=== PATIENT | female | born 1945 | race African-American/Black ===

== ENCOUNTER → 2017-04-11 | Outpatient (CLI) | payer MEDICARE, OTHER ==
--- NOTE | 2017-04-11 14:53 | RAD ---
DATE: 04/11/2017 EXAM: DIGITAL SCREEN BILAT W/CAD HISTORY: Routine screening COMPARISON: 04/10/2016 This study was interpreted with the benefit of Computerized Aided Detection (CAD). FINDINGS: Breast Density: SCATTERED The breast parenchyma shows scattered fibroglandular densities. Breast parenchyma level B. There are no dominant suspicious masses, suspicious microcalcifications or evidence of architectural distortion. Density identified in the left breast best seen on the cc view likely postbiopsy changes similar to prior exam . Benign-appearing calcifications identified in the right breast similar to prior exam. IMPRESSION: Benign findings BI-RADS CATEGORY: 2 BENIGN FINDING RECOMMENDED FOLLOW-UP: 12M 12 MONTH FOLLOW-UP PQRS compliance statement: Patient information was entered into a reminder system with a target due date 04/11/2018 for the next mammogram. Mammography is a sensitive method for finding small breast cancers, but it does not detect them all and is not a substitute for careful clinical examination. A negative mammogram does not negate a clinically suspicious finding and should not result in delay in biopsying a clinically suspicious abnormality. "Our facility is accredited by the [employer] Mammography [employer]."
== END | disposition home or self-care (01) ==
LOC: MAMMO 09:21
PROVIDERS: ATTEND Family Medicine
DX: Z12.31 Encounter for screening mammogram for malignant neoplasm of breast (principal)
CPT/HCPCS: G0202; 77067

== ENCOUNTER → 2018-04-14 | Outpatient (CLI) | payer MEDICARE, OTHER ==
--- NOTE | 2018-04-14 11:45 | RAD ---
DATE: 04/14/2018 EXAM: MAMMO ELEONORA SCREENING BILATERAL HISTORY: Routine screening COMPARISON: Previous mammogram from 2017 and 2016 This study was interpreted with the benefit of Computerized Aided Detection (CAD). FINDINGS: Breast Density: SCATTERED The breast parenchyma shows scattered fibroglandular densities. Breast parenchyma level B. Stable asymmetry is seen in the left anterior breast only seen on cc view most likely post procedural scar. Benign-appearing calcifications are seen in the right breast. No suspicious calcifications, spiculated masses or areas of architectural distortion. IMPRESSION: No mammographic evidence of malignancy. Stable mammogram. BI-RADS CATEGORY: 2 BENIGN FINDING(S) RECOMMENDED FOLLOW-UP: 12M 12 MONTH FOLLOW-UP PQRS compliance statement: Patient information was entered into a reminder system with a target due date for the next mammogram. Mammography is a sensitive method for finding small breast cancers, but it does not detect them all and is not a substitute for careful clinical examination. A negative mammogram does not negate a clinically suspicious finding and should not result in delay in biopsying a clinically suspicious abnormality. "Our facility is accredited by the [employer]amm[employer]."
== END | disposition home or self-care (01) ==
LOC: MAMMO 08:30
PROVIDERS: ATTEND Specialist
DX: Z12.31 Encounter for screening mammogram for malignant neoplasm of breast (principal)
CPT/HCPCS: 77063; 77067

== ENCOUNTER → 2019-04-15 | Outpatient (CLI) | payer MEDICARE, OTHER ==
--- NOTE | 2019-04-16 12:07 | RAD ---
DATE: 04/15/2019 1:47 PM EXAM: MAMMO ELEONORA SCREENING BILATERAL HISTORY screening mammogram. History of bilateral breast biopsies. COMPARISON: April 14, 2018. April 11, 2017. Bilateral CC and MLO views of the breasts were performed. Bilateral breast tomosynthesis was performed in CC and MLO projections. This study was interpreted with the benefit of Computerized Aided Detection (CAD). FINDINGS: Breast Density: SCATTERED The breast parenchyma shows scattered fibroglandular densities. Breast parenchyma level B Several right scattered breast masses, unchanged. Left breast scar related to prior procedure, unchanged compared to prior. Right breast scarring, likely related to prior procedure, unchanged. No suspicious masses, microcalcifications or architectural distortion is present to suggest malignancy in either breast. The visualized axillae are unremarkable. IMPRESSION: Stable bilateral mammograms. BI-RADS CATEGORY: 2 BENIGN FINDING(S) RECOMMENDED FOLLOW-UP: 12M 12 MONTH FOLLOW-UP Annual screening mammography is recommended, unless clinically indicated sooner based on symptoms or change in physical exam. PQRS compliance statement: Patient information was entered into a reminder system with a target due date one year for the next mammogram. Mammography is a sensitive method for finding small breast cancers, but it does not detect them all and is not a substitute for careful clinical examination. A negative mammogram does not negate a clinically suspicious finding and should not result in delay in biopsying a clinically suspicious abnormality. "Our facility is accredited by the [employer] Mammography [employer]."
== END | disposition home or self-care (01) ==
LOC: MAMMO 13:31
PROVIDERS: ATTEND Specialist
DX: Z12.31 Encounter for screening mammogram for malignant neoplasm of breast (principal); N63.10 Unspecified lump in the right breast, unspecified quadrant
CPT/HCPCS: 77063; 77067

== ENCOUNTER 2020-04-25 12:24 | Emergency (ER) | payer MEDICARE, OTHER ==
[~2020-04-25] VITALS: Ht 170.2 cm; Wt 104.0 kg
--- NOTE | 2020-04-25 13:50 | RAD ---
Examination: KNEE RIGHT 3V History: Reason: fall pain / Spl. Instructions: / History: Comparison/Correlation: None Findings: Total of 3 images of the right knee were obtained. Displaced comminuted fractures of the tibial plateau and tibial and proximal tibial metaphysis noted with intra-articular involvement. Possibility of fibular head fractures is questioned. Evaluation is limited due to patient positioning. Patellofemoral compartment narrowing and remodeling is present. No displaced distal femoral fractures are delineated. Impression: Comminuted tibial plateau and proximal tibial metaphyseal fractures with significant displacement. Possible fibular head fracture involvement. Electronically signed by: Edd Watters MD (04/25/2020 1:46 PM) [id number]
--- NOTE | 2020-04-25 14:35 | RAD ---
EXAMINATION: CT LOWER EXTREMITY WO RIGHT, 04/25/2020 1:42 PM CLINICAL INDICATION: Knee fracture COMPARISON: Right knee radiograph 04/25/2020 TECHNIQUE: Helical CT imaging performed of the right knee without the use of intravenous contrast. Sagittal and coronal reformats were obtained. One or more of the following individualized dose reduction techniques were utilized for this examination: 1. Automated exposure control 2. Adjustment of the mA and/or kV according to patient size 3. Use of iterative reconstruction technique. FINDINGS: There is a highly comminuted, displaced tibial plateau fracture involving the medial and lateral tibial plateau with the distal femur impacted on the anterior tibia. This results in at least 1.6 cm depression of the articular surface anteriorly. There is a transverse metaphyseal component of the fracture. There is significant posterior subluxation of the distal femur relative to the femur by at least 3 cm. Displaced tibial plateau fracture fragments are in close proximity to popliteal artery and vein. No large hematoma. There is a comminuted, mildly displaced fracture of fibular head. There is mild subcutaneous edema. Radiopaque densities in the lower anterior resection could be calcifications or foreign bodies. There is no large hematoma in the posterior knee. IMPRESSION: 1. Highly comminuted, displaced tibial plateau fracture as described, with posterior subluxation/dislocation of the knee. Displaced fracture fragments are in close proximity to the popliteal artery and vein. Recommend CT angiogram of the lower extremity to exclude vascular injury. 2. Comminuted, mildly displaced fibular head fracture. Electronically signed by: Kimberly Taylor MD (04/25/2020 2:32 PM) [id number]
[2020-04-25 15:01] LABS: BASO # 0.1 x10^3/uL (0.0-0.2); BASO % 1 % (0-3); EOS % 0 % (0-3); HEMATOCRIT 37.6 % (36.0-47.0); HEMOGLOBIN 12.1 g/dL (12.0-15.5); LYMPH # 1.5 x10^3/uL (1.0-4.8); LYMPH % 10 % (24-48); MEAN CORPUSCULAR HEMOGLOBIN 27 pg (25-35); MEAN CORPUSCULAR HGB CONC 32 g/dL (31-37); MEAN CORPUSCULAR VOLUME 83 fL (79-100); MONO # 0.8 x10^3/uL (0.0-1.1); MONO % 6 % (0-9); NEUT # 12.8 x10^3/uL (1.8-7.7); NEUT % 84 % (31-73); PLATELET COUNT 271 x10^3/uL (140-400); RED BLOOD COUNT 4.53 x10^6/uL (3.50-5.40); RED CELL DISTRIBUTION WIDTH 14.6 % (11.5-14.5); WHITE BLOOD COUNT 15.3 x10^3/uL (4.0-11.0)
[2020-04-25 15:28] LABS: CALCIUM 8.9 mg/dL (8.5-10.1); CREATININE 1.1 mg/dL (0.6-1.0); GFR 58.4; POTASSIUM 4.1 mmol/L (3.5-5.1)
[2020-04-25 15:33] VITALS: BP 150/74
[2020-04-25 15:33] LABS: ALBUMIN 3.3 g/dL (3.4-5.0); ALBUMIN/GLOBULIN RATIO 0.8 (1.0-1.7); TOTAL BILIRUBIN 0.3 mg/dL (0.2-1.0); TOTAL PROTEIN 7.3 g/dL (6.4-8.2)
[2020-04-25] MEDS ORDERED: CONTRAST GIVEN. MC PRN (15:45)
[2020-04-25] MEDS ORDERED: IOHEXOL 350 MG/ML 100 ML VIAL. IV ONE (15:45)
[2020-04-25 16:35] LABS: % BANDS 1 % (0-9); % LYMPHS 11 % (24-48); % MONOS 3 % (0-10); % SEGS 85 % (35-66); PLT ESTIMATE ADEQUATE (ADEQUATE)
--- NOTE | 2020-04-25 16:55 | RAD ---
EXAMINATION: CT ANGIO LOWER EXTREMITY RIGHT, 04/25/2020 2:37 PM CLINICAL INDICATION: Evaluate for arterial injury of the right knee. Posterior dislocation. COMPARISON: CT right lower extremity 04/25/2020 TECHNIQUE: Helical CT angiogram of the right knee after the administration of 80 mL Omnipaque 350 intravenous contrast. Sagittal and coronal MIP reformats were obtained. One or more of the following individualized dose reduction techniques were utilized for this examination: 1. Automated exposure control 2. Adjustment of the mA and/or kV according to patient size 3. Use of iterative reconstruction technique. FINDINGS: There is no arterial occlusion, transection or extravasation. There is focal irregularity and mild narrowing of the proximal popliteal artery at the level of the distal femoral metaphysis, approximately 10 cm cranial to the bifurcation (image [id number] axial series), which could represent a vasospasm versus small intimal injury/dissection. The rest of the popliteal artery, tibioperoneal trunk, and three-vessel runoff are normal in appearance. There are a few small scattered calcifications in the common and superficial femoral artery without significant narrowing. Comminuted tibial plateau fracture with posterior knee subluxation/dislocation is unchanged. Proximal fibular fracture is unchanged. There is subcutaneous edema and a small amount of fluid about the knee. Calcifications versus foreign bodies in the subcutaneous soft tissues along the anterior proximal parry. IMPRESSION: 1. Focal irregularity of the proximal popliteal artery at the level of the distal femoral metaphysis could represent a vasospasm versus small, likely nonflow-limiting dissection. No occlusion, transection, or contrast extravasation. 2. Unchanged fracture-dislocation of the knee, fully described on prior CT. Electronically signed by: Kimberly Taylor MD (04/25/2020 4:52 PM) [id number]
[2020-04-25] MEDS ORDERED: MORPHINE SULFATE 10 MG/ML VIAL. IV ONE (18:15)
[2020-04-25] MEDS ORDERED: HYDROmorphone 2 MG/ML VIAL IVP ONE (19:00)
--- NOTE | 2020-04-25 19:00 | PHYS DOC ---
Past Medical History Past Medical History: Diabetes-Type II, High Cholesterol, Hypertension (STEPHON RICKS APRN) Past Surgical History: No Surgical History (STEPHON RICKS APRN) Smoking Status: Never Smoker Alcohol Use: None (STEPHON RICKS APRN) General Adult EDM: Chief Complaint: MECHANICAL FALL HPI: HPI: Patient is a 75 year old female with a history of diabetes type 2, hypertension , high cholesterol, who presents to the ED today complaining of 10 out of 10 right knee pain that began a couple minutes prior to coming to the ED after falling. Patient states she tripped over her own shoes and fell landing on her right knee. Denies any loss of consciousness. Denies hitting her head on the ground. Denies any neck pain. States the pain is throbbing and intermittent. She states she was given fentanyl by EMS and this relieved some of the pain. She states she feels like the lower extremity is not connected to the knee on the right side. (STEPHON RICKS APRN) Review of Systems: Review of Systems: Constitutional: Denies fever or chills. [] Eyes: Denies change in visual acuity. [] HENT: Denies nasal congestion or sore throat. [] Respiratory: Denies cough or shortness of breath. [] Cardiovascular: Denies chest pain or edema. [] GI: Denies abdominal pain, nausea, vomiting, bloody stools or diarrhea. [] : Denies dysuria. [] Musculoskeletal: Reports right knee pain, denies any neck pain, mid or low back pain Integument: Denies rash. [] Neurologic: Denies headache, focal weakness or sensory changes. [] Psychiatric: Denies depression or anxiety. [] (STEPHON RICKS APRN) Heart Score: Risk Factors: Risk Factors: DM, Current or recent (<one month) smoker, HTN, HLP, family history of CAD, obesity. Risk Scores: Score 0 - 3: 2.5% MACE over next 6 weeks - Discharge Home Score 4 - 6: 20.3% MACE over next 6 weeks - Admit for Clinical Observation Score 7 - 10: 72.7% MACE over next 6 weeks - Early Invasive Strategies (STEPHON RICKS APRN) Current Medications: Current Medications Medications (Trade) Dose Ordered Sig/Marck Start Time Stop Time Status Last Admin Dose Admin Info (CONTRAST GIVEN -- Rx MONITORING) 1 each PRN DAILY PRN 04/25/20 15:45 04/27/20 15:44 Iohexol (Omnipaque 350 Mg/ml) 80 ml 1X ONCE 04/25/20 15:45 04/25/20 15:46 DC 04/25/20 16:08 80 ML Morphine Sulfate (Morphine Sulfate) 5 mg 1X ONCE 04/25/20 18:15 04/25/20 18:16 DC 04/25/20 18:17 5 MG (STEPHON RICKS APRN) Allergies: Allergies: Allergies Coded Allergies Type Severity Reaction Last Updated Verified No Known Drug Allergies 04/25/20 No (STEPHON RICKS REAM CUTTER) Physical Exam: PE: Constitutional: Well developed, well nourished, no acute distress, non-toxic appearance. [] HENT: Normocephalic, atraumatic, bilateral external ears normal, oropharynx moist, no oral exudates, nose normal. [] Eyes: PERRLA, EOMI, conjunctiva normal, no discharge. [] Neck: Normal range of motion, no tenderness, supple, no stridor. [] Cardiovascular:Heart rate regular rhythm, no murmur [] Lungs & Thorax: Bilateral breath sounds clear to auscultation [] Abdomen: Bowel sounds normal, soft, no tenderness, no masses, no pulsatile masses. [] Skin: Warm, dry, no erythema, no rash. [] Back: No tenderness, no CVA tenderness. [] Extremities: Right knee with mild soft tissue swelling diffusely. The knee is deformed. Patient unable to take the knee through any range of motion. Full range of motion to the right toes. +2 right pedal pulse. Cap refill less than 2 seconds the right toes. Sensation intact to the right lower extremity. Neurologic: Alert and oriented X 3, normal motor function, normal sensory function, no focal deficits noted. [] Psychologic: Affect normal, judgement normal, mood normal. [] (STEPHON RICKS REAM CUTTER) Current Patient Data: Labs: Laboratory Tests Test 04/25/20 14:53 White Blood Count 15.3 x10^3/uL (4.0-11.0) H Red Blood Count 4.53 x10^6/uL (3.50-5.40) Hemoglobin 12.1 g/dL (12.0-15.5) Hematocrit 37.6 % (36.0-47.0) Mean Corpuscular Volume 83 fL (79-100) Mean Corpuscular Hemoglobin 27 pg (25-35) Mean Corpuscular Hemoglobin Concent 32 g/dL (31-37) Red Cell Distribution Width 14.6 % (11.5-14.5) H Platelet Count 271 x10^3/uL (140-400) Neutrophils (%) (Auto) 84 % (31-73) H Lymphocytes (%) (Auto) 10 % (24-48) L Monocytes (%) (Auto) 6 % (0-9) Eosinophils (%) (Auto) 0 % (0-3) Basophils (%) (Auto) 1 % (0-3) Neutrophils # (Auto) 12.8 x10^3/uL (1.8-7.7) H Lymphocytes # (Auto) 1.5 x10^3/uL (1.0-4.8) Monocytes # (Auto) 0.8 x10^3/uL (0.0-1.1) Eosinophils # (Auto) 0.0 x10^3/uL (0.0-0.7) Basophils # (Auto) 0.1 x10^3/uL (0.0-0.2) Segmented Neutrophils % 85 % (35-66) H Band Neutrophils % 1 % (0-9) Lymphocytes % 11 % (24-48) L Monocytes % 3 % (0-10) Platelet Estimate Adequate (ADEQUATE) Sodium Level 140 mmol/L (136-145) Potassium Level 4.1 mmol/L (3.5-5.1) Chloride Level 103 mmol/L (98-107) Carbon Dioxide Level 25 mmol/L (21-32) Anion Gap 12 (6-14) Blood Urea Nitrogen 24 mg/dL (7-20) H Creatinine 1.1 mg/dL (0.6-1.0) H Estimated GFR (Cockcroft-Gault) 58.4 BUN/Creatinine Ratio 22 (6-20) H Glucose Level 290 mg/dL (70-99) H Calcium Level 8.9 mg/dL (8.5-10.1) Total Bilirubin 0.3 mg/dL (0.2-1.0) Aspartate Amino Transferase (AST) 11 U/L (15-37) L Alanine Aminotransferase (ALT) 17 U/L (14-59) Alkaline Phosphatase 105 U/L (46-116) Total Protein 7.3 g/dL (6.4-8.2) Albumin 3.3 g/dL (3.4-5.0) L Albumin/Globulin Ratio 0.8 (1.0-1.7) L Laboratory Tests 04/25/20 14:53 Laboratory Tests 04/25/20 14:53 Vital Signs: Vital Signs Date Time Temp Pulse Resp B/P (MAP) Pulse Ox O2 Delivery O2 Flow Rate FiO2 04/25/20 15:33 92 20 98 04/25/20 12:30 98.0 138/76 (96) Room Air 98.0 (STEPHON RICKS APRN) EKG: EKG: [] (STEPHON RICKS APRN) Radiology/Procedures: Radiology/Procedures: []PROCEDURE: KNEE RIGHT 3V Examination: KNEE RIGHT 3V History: Reason: fall pain / Spl. Instructions: / History: Comparison/Correlation: None Findings: Total of 3 images of the right knee were obtained. Displaced comminuted fractures of the tibial plateau and tibial and proximal tibial metaphysis noted with intra-articular involvement. Possibility of fibular head fractures is questioned. Evaluation is limited due to patient positioning. Patellofemoral compartment narrowing and remodeling is present. No displaced distal femoral fractures are delineated. Impression: Comminuted tibial plateau and proximal tibial metaphyseal fractures with significant displacement. Possible fibular head fracture involvement. Electronically signed by: Edd Castro MD (04/25/2020 1:46 PM) [id number] DICTATED and SIGNED BY: EDD CASTRO MD DATE: 04/25/20 1346 (STEPHON RICKS APRN) Course & Med Decision Making: Course & Med Decision Making Pertinent Labs and Imaging studies reviewed. (See chart for details) This is a 75-year-old female patient presenting to the ED today with right knee pain status post falling. Right knee x-rays interpreted by radiologist were noted for comminuted tibial plateau and proximal tibial metaphyseal fractures with significant displacement. Possible fibular head fracture involvement. CT of the right knee with no contrast was noted for highly comminuted, displaced tibial plateau fracture as described, with posterior subluxation/dislocation of the knee. Displaced fracture fragments are in close proximity to the popliteal artery and vein. Recommend CT angiogram of the lower extremity to exclude vascular injury. Comminuted, mildly displaced fibular head fracture. Spoke with he requested we transfer patient to a trauma center. I called [facility] transfer line, they stated all their facilities were full and if not I can try to call [place] which is very far away from patient. I called [facility], accepted patient CT angio of the right lower extremity was obtained. Results pending. Case was discussed with Dr. Salinas (STEPHON RICKS APRN) [place] Disclaimer: [place] Disclaimer: This electronic medical record was generated, in whole or in part, using a voice recognition dictation system. (STEPHON RICKS APRN) Departure Departure Impression: Primary Impression: Fall from standing Qualified Codes: W19.XXXA - Unspecified fall, initial encounter Additional Impressions: Tibial plateau fracture, right Qualified Codes: S82.141A - Displaced bicondylar fracture of right tibia, initial encounter for closed fracture Fracture of head of right fibula Qualified Codes: S82.831A - Other fracture of upper and lower end of right fibula, initial encounter for closed fracture Right knee dislocation Qualified Codes: S83.104A - Unspecified dislocation of right knee, initial encounter Disposition: 05 DC/TRF OTHER TYPE INSTITUTI Condition: STABLE Referrals: LIANA EM MD (PCP) Attending Signature Attending Signature I have reviewed the PA/COOK JELLY's note and plan of care. I was available for consultation as needed during the patient's visit in the emergency department. I agree with the clinical impression, plan, and disposition. (TRUPTI SALINAS DO) STEPHON RICKS APRN Apr 25, 2020 19:00 TRUPTI SALINAS DO Apr 25, 2020 19:51
== END 2020-04-25 19:13 | disposition short-term general hospital (02) ==
LOC: ER 12:24
DX: S82.831A Other fracture of upper and lower end of right fibula, initial encounter for closed fracture (principal); S83.114A Anterior dislocation of proximal end of tibia, right knee, initial encounter; S82.141A Displaced bicondylar fracture of right tibia, initial encounter for closed fracture; R60.0 Localized edema; R20.0 Anesthesia of skin; E11.9 Type 2 diabetes mellitus without complications; E78.00 Pure hypercholesterolemia, unspecified; I10 Essential (primary) hypertension; W01.0XXA Fall on same level from slipping, tripping and stumbling without subsequent striking against object, initial encounter; Y93.89 Activity, other specified; Y92.89 Other specified places as the place of occurrence of the external cause; Y99.8 Other external cause status
CPT/HCPCS: 36415; 73562; 73700; 73706; 80053; 85007; 85025; 87426; 96374; 96375; 99285; J1170; J2270; Q9967; U0003; C9803